=== PATIENT | male | born 2000 | race Caucasian/White ===

== ENCOUNTER → 2022-07-06 16:20 | Outpatient (BNVA) | payer BC, SELFPAY | PROVIDERS: Visit Provider Nurse Practitioner Family | DX: M79.645 Pain in left finger(s) (principal) | CPT/HCPCS: 73130 ==

== ENCOUNTER 2022-07-22 10:24 | Day surgery (SDC) | payer BC, SELFPAY ==
[2022-07-21 09:52] VITALS: BMI 29.6
[2022-07-22] VITALS (8 sets, daily range): BP systolic 125–166; BP diastolic 63–92; PULSE 78–90; RESP 16–18; TEMP 36.8; O2SAT 98–100
[2022-07-22] MEDS: sodium chloride 0.9% 1,000 ML 30 ML IV (11:00)
--- NOTE | 2022-07-22 12:05 | SUR.PREOP ---
Pre-operative Patient does not wish to take the IV Tylenol or IV Tramadol that is ordered for pre-op. Patient states he does not like to take medication and would rather not if he does not have to. He is okay with antibiotic. Dr. Hamlin and Dr. Bonilla informed.
--- NOTE | 2022-07-22 12:12 | W.PM.OPSUD ---
Surgery/Procedure H&P Update DATE OF PROCEDURE: July 22, 2022 DATE H&P PERFORMED: 07/20/22 CHANGES TO PREVIOUS DOCUMENTATION: None PREOP DIAGNOSIS: Left middle finger foreign body PRIMARY INDICATION FOR PROCEDURE: Left middle finger foreign body PLANNED PROCEDURE: Operation Date: 07/22/22 11:55 Proposed Procedures p left middel finger foreign body removal 18557(Left) - DO abhay Coronado Incision and Drainage(Left) - Johnny Bonilla DO
[2022-07-22] MEDS: ceFAZolin 2,000 MG in sodium chloride 0.9% (plus) 50 ML 100 MG IV (12:18)
[2022-07-22] MEDS: lidocaine 1% INJ 20 mL 5 ML INJECTION (12:41)
--- NOTE | 2022-07-22 12:58 | P.OP_ITS ---
Brief Operative Note Date of procedure: 07/22/22 Pre-op diagnosis: Left middle finger foreign body Post-op diagnosis: same Procedure Done: Left middle finger foreign body removal Surgeon: Johnny Bonilla Estimated blood loss (mL): 1 Complications: None Post-op Plan: Patient to recover in PACU. Patient will discharge today. Begin appropriate discharge instructions as well as pain medication postoperatively. He may weight-bear as tolerated to the left hand. We will have him follow-up with the us in the office in 2 weeks for incision check and suture removal. Patient understands agrees with current plan. All questions answered. Condition: stable Disposition: same day Coding Level of Care Code Acute [employer] for Mikey Maldonado
--- NOTE | 2022-07-22 13:00 | PM.PACU ---
PACU note Narrative: Patient seen and evaluated recovering well in PACU. Patient surgery was done under local. Left middle finger is numb to the touch. Dressings on in place clean dry and intact. Fingertips warm well perfused. Brisk capillary refill less than 2 seconds. Patient is able to make a full fist and extend his fingers intraoperatively prior to dressing placement. Exam: awake (See narrative examination for details) Disposition: discharged
--- NOTE | 2022-07-22 13:01 | PM.OP ---
Operative Report Date of procedure: July 22, 2022 Pre-op diagnosis: Preop Diagnosis Left middle finger foreign body Post-op diagnosis: Same Procedure done: Left middle finger foreign body excision Surgeon: Johnny Bonilla DO Anesthesia: Local Estimated blood loss: 1 Finger turnicot 7 minutes IV fluids: See anesthesia record Complications: None Findings: See operative report narrative Condition: stable Disposition: same day Brief History: Robbie is a pleasant 22-year-old gentleman who sustained a laceration to his left middle finger while working on drywall and believes he had a small piece of drywall in the laceration roughly 3 months ago. He states his laceration appeared to heal but he developed a significant palpable nodule/retained foreign body over the dorsal aspect of the PIP of the left middle finger. He thought this would resolve over time however is noticed on daily activities he bumps and this is significantly painful. He was seen evaluated in the office and had detailed discussion with him about his treatment options through shared decision-making agreed to proceed with surgical intervention. He understands risk benefits complication alternatives surgical treatment options and he agrees to proceed with surgery for left middle finger foreign body excision. Patient understands agrees with current plan. All questions answered. Procedure: Patient was seen evaluated in preoperative holding area. Consent was reviewed with patient. Correct extremity was then marked. Patient was seen evaluated by the anesthesia department as well as preoperative team. Once cleared for surgery was taken back to the OR. He was transferred to the OR table and all bony prominences were well-padded patient was appropriately secured to the bed. With anesthesia we elected to proceed with just local anesthesia. Patient received appropriate preoperative antibiotics final timeout performed. Patient underwent a digital block to the left middle finger utilizing sterile aseptic technique with 5 cc of lidocaine and 5 cc of bupivacaine. The left upper extremity was then prepped and draped in standard orthopedic fashion. Finger turnicot was applied to the left middle finger. Patient's skin was then tested and was appropriately anesthetized with local. Mass with foreign body over the dorsal aspect of the PIP of the left middle finger was identified and a standard longitudinal incision was then made roughly 3 cm in length. Sharp scalpel excision through skin and subcutaneous tissue with a 15 blade identified the encapsulated foreign body which had been walled off. I then utilized dissection scissors as well as scalpel to completely excise this off of the extensor mechanism. This did not appear to communicate deep and was superficial to the extensor mechanism. This was appropriately excised atraumatically and encapsulated mass was then identified and having a hard piece of drywall within this. The wound bed was not infected at all. There was no violation of the extensor mechanism or communication of the joint. Patient was then asked to flex and extend and had full range of motion with no issues. This point time wound bed was thoroughly irrigated. Finger turnicot was removed and let down. Bipolar electrocautery was used to maintain exact hemostasis. I then closed the incision with interrupted horizontal mattress nylon suture. Incision was then dressed with Xeroform 4 x 4's ABD Curlex and soft roll for soft dressing. Patient's dressings were taken down he was then taken back to PACU in stable condition. Disposition patient given appropriate discharge instructions as well as pain medication postoperatively. Patient may be weightbearing as tolerated to the left hand. Patient given appropriate dressing changes. Follow-up with me in office in 2 weeks for repeat evaluation and suture removal. Encourage range of motion of the left middle finger. Patient understands agrees with current plan. All questions answered.
== END 2022-07-22 13:20 | disposition home or self-care (01) ==
PROVIDERS: Visit Provider Student in an Organized Health Care Education/Training Program
PROC: (CPT 10120; principal; 2022-07-22 11:45)
PROC: (CPT 10120; 2022-07-22 11:45)
DX: S61.223A Laceration with foreign body of left middle finger without damage to nail, initial encounter (principal); X58.XXXA Exposure to other specified factors, initial encounter
CPT/HCPCS: 10120; J3490; J7030